=== PATIENT | female | born 1980 | race American Indian/Alaskan Native ===

== ENCOUNTER 2016-12-02 06:16 | Emergency (ER) | payer SELFPAY ==
[2016-12-02 08:41] LABS: Bilirubin,Urine NEG (Negative); Blood,Urine NEG (Negative); Ketones,Urine NEG (Negative); Leukocyte Esterase,Urine NEG (Negative); Mucus,Urine FEW /HPF; Nitrite,Urine NEG (Negative); Urobilinogen,Urine < 2.0 mg/dL (<2.0)
[2016-12-02] MEDS ORDERED: MORPHINE IV ONE (12:03)
[2016-12-02] MEDS ORDERED: ZOFRAN IV ONE (12:03)
[2016-12-02] MEDS ORDERED: NACL 0.9% 1000 ML IV ONE (12:03)
[2016-12-02 12:38] LABS: Mean Corpuscular HGB Conc 30 % (30-34); Platelet Count 431 K/mm3 (140-440); Red Blood Count 4.18 M/mm3 (3.65-5.03)
[2016-12-02 12:41] LABS: Hematocrit 28.4 % (30.3-42.9); Hemoglobin 8.4 gm/dl (10.1-14.3); Mean Corpuscular Hemoglobin 20 pg (28-32); Mean Corpuscular Volume 68 fl (79-97); Red Cell Distribution Width 21.9 % (13.2-15.2)
[2016-12-02 13:27] LABS: Alanine Aminotransferase 12 units/L (7-56); Albumin 4.3 g/dL (3.9-5); Albumin/Globulin Ratio 1.1 %; Alkaline Phosphatase 94 units/L (35-129); Anion Gap 22 mmol/L; Bilirubin,Total 0.6 mg/dL (0.1-1.2); Blood Urea Nitrogen 10 mg/dL (7-17); Calcium 8.9 mg/dL (8.4-10.2); Carbon Dioxide 18 mmol/L (22-30); Glucose 94 mg/dL (65-100); Lipase 26 units/L (13-60); Potassium 3.6 mmol/L (3.6-5.0); Sodium 135 mmol/L (137-145); Total Protein 8.3 g/dL (6.3-8.2)
[2016-12-02 13:30] LABS: Anisocytosis 2+; Blastocytes % (Manual) 0 %; Eosinophils % (Manual) 0 % (0.0-4.3); Poikilocytosis 1+; Polychromasia 1+
[2016-12-02 13:31] LABS: Bilirubin,Direct < 0.2 mg/dL (0-0.2); Diff Status Complete; Hypochromasia 1+
[2016-12-02] MEDS ORDERED: NACL ONE (13:32)
--- NOTE | 2016-12-02 13:40 | Emergency Department Report ---
HPI - General Chief Complaint: Abdominal Pain Time Seen by Provider: 12/02/16 11:56 - HPI HPI: Chief complaint: Abdominal pain HPI: Patient is a 36-year-old female has been having abdominal pain for approximately one month. Patient saw her primary care doctor 3 weeks ago and was referred to the emergency department. Patient states she began having some nausea and vomiting approximately 2 weeks ago. Patient also complains of left flank pain radiating into her left buttocks and down her left leg. Patient has had an appendectomy and states to members of her family have had diverticulitis in the past. Patient works part-time for [employer]. Mode of arrival: private car Source: Patient Began: One month ago Duration: One month Context: Worse over the last week Quality: Sharp Severity: 9 out of 10 Improved with: Laying still Worsened with: Movement Associated signs and symptoms: Nausea and vomiting over the last week no diarrhea or fever ED Past Medical Hx - Past Medical History Previous Medical History?: Yes Hx Hypertension: Yes Hx Headaches / Migraines: Yes Hx Asthma: Yes Additional medical history: OBESITY - Surgical History Past Surgical History?: Yes Hx Appendectomy: Yes - Social History Smoking Status: Never Smoker Substance Use Type: Alcohol - Medications Home Medications: Home Medications Medication Instructions Recorded Confirmed Last Taken Type Hydrochlorothiazide [HCTZ] 25 mg PO QDAY 07/22/16 07/22/16 Unknown History Ibuprofen [Motrin 600 MG tab] 600 mg PO Q8H PRN #20 tablet 12/02/16 Unknown Rx traMADol [Ultram 50 MG tab] 50 mg PO Q6HR PRN #20 tablet 12/02/16 Unknown Rx ED Review of Systems ROS: Stated complaint: BACK/HIP/LT SIDE PAIN Other details as noted in HPI ROS Constitutional: No fever ENT: No uri symptoms Cardiovascular: No chest pain Respiratory: No sob or cough GI: No diarrhea : No dysuria frequency or urgency, Skin: No rash Neuro: No focal weakness or numbness Psych: No depression Yohannes/lymph: No edema Physical Exam - Physical Exam Vital Signs: Vital Signs 12/02/16 12/02/16 07:38 12:24 Temperature 98.5 F Pulse Rate 102 H Respiratory 16 22 Rate Blood Pressure 172/110 O2 Sat by Pulse 100 Oximetry Physical Exam: GENERAL: The patient is well-developed well-nourished . HEENT: Normocephalic. Atraumatic. Extraocular motions are intact. Patient has moist mucous membranes. NECK: Supple. No meningitic signs are noted. There is no adenopathy noted. CHEST/LUNGS: Clear to auscultation. There is no respiratory distress noted. HEART/CARDIOVASCULAR: Regular. There is no tachycardia. There is no gallop rub or murmur. ABDOMEN: Abdomen is soft, he said abdominal tenderness without rebound or guarding. Patient has normal bowel sounds. There is no abdominal distention. SKIN: There is no rash. There is no edema. There is no diaphoresis. NEURO: The patient is awake, alert, and oriented. The patient is cooperative. The patient has no focal neurologic deficits. The patient has normal speech. MUSCULOSKELETAL: There is a left para vertebral tenderness starting in the left flank radiating down to the left buttocks. Straight leg raise is negative. There is no limitation range of motion. There is no evidence of acute injury. ED Course Vital Signs 12/02/16 12/02/16 07:38 12:24 Temperature 98.5 F Pulse Rate 102 H Respiratory 16 22 Rate Blood Pressure 172/110 O2 Sat by Pulse 100 Oximetry - Reevaluation(s) Reevaluation #1: 12/02/16 15:23 Patient was given 4 of morphine and 4 of Zofran with improvement. Patient's blood pressure came down with pain medication. Also given a liter of normal saline and 30 mg of IV Toradol. ED Medical Decision Making - Lab Data Result diagrams: 12/02/16 12:17 12/02/16 12:17 Laboratory Tests 12/02/16 12/02/16 08:05 12:17 Total Protein 8.3 H Lipase 26 Ur Specific [place] 1.023 Urine Protein 30 mg/dl Urine Glucose (UA) Neg Urine Ketones Neg Urine Blood Neg Urine Nitrite Neg Urine Bilirubin Neg Ur Leukocyte Esterase Neg Urine WBC (Auto) 1.0 Urine RBC (Auto) 3.0 U Epithel Cells (Auto) 2.0 Urine HCG, Qual Negative Critical care attestation.: If time is entered above; I have spent that time in minutes in the direct care of this critically ill patient, excluding procedure time. ED Disposition Clinical Impression: Right ovarian cyst Sciatica Qualifiers: Laterality: left Qualified Code(s): M54.32 - Sciatica, left side Disposition: DISCHARGED TO HOME OR SELFCARE Is pt being admited?: No Does the pt Need Aspirin: No Condition: Stable Instructions: Sciatica (ED), Ovarian Cyst (ED) Prescriptions: Ibuprofen [Motrin 600 MG tab] 600 mg PO Q8H PRN #20 tablet PRN Reason: Pain traMADol [Ultram 50 MG tab] 50 mg PO Q6HR PRN #20 tablet PRN Reason: Pain Referrals: ASPEN GUALLPA MD [Primary Care Provider] - 3-5 Days [facility] [Provider Group] - 3-5 Days Time of Disposition: 15:25
--- NOTE | 2016-12-02 14:16 | Cat Scan Report ---
CT scan of abdomen and pelvis with IV contrast: History: Abdominal pain. Findings: Normal lung bases. No pleural or pericardial effusion. Normal liver spleen pancreas and gallbladder. Normal right adrenal gland. 9 mm low density mass left adrenal gland probably an adenoma or a cyst. Normal kidneys and bladder. No free intraperitoneal fluid or air. No evidence of adenopathy. Enlarged uterus. There is a cyst measuring 5.2 cm in diameter and the right adnexa adjacent to the right side of fundus. No evidence of appendicitis or diverticulitis. Minimal air and stool in colon. No bowel distention. Impression: Large cyst right adnexa. Sonographic correlation may be advised. Left adrenal adenoma or a cyst.
[2016-12-02 15:10] VITALS: BP 125/55
[2016-12-02] MEDS ORDERED: TORADOL IV ONE (15:17)
== END 2016-12-02 17:45 | disposition home or self-care (01) ==
LOC: ED 06:16
DX: N83.201 Unspecified ovarian cyst, right side (principal); M54.32 Sciatica, left side; I10 Essential (primary) hypertension; G43.909 Migraine, unspecified, not intractable, without status migrainosus; J45.909 Unspecified asthma, uncomplicated; E66.9 Obesity, unspecified
CPT/HCPCS: 36415; 74177; 80048; 80074; 81001; 81025; 83690; 85007; 85025; 96361; 96374; 96375; 99284; J1885; J2270; J2405; J7030; Q9967

== ENCOUNTER 2018-06-07 05:34 | Emergency (ER) | payer OTHER ==
[2018-06-07] MEDS ORDERED: TYLENOL ONE (06:07)
[2018-06-07 06:41] VITALS: BP 166/82
--- NOTE | 2018-06-07 09:34 | Emergency Department Report ---
HPI - General Chief Complaint: Sore Throat Time Seen by Provider: 06/07/18 09:17 - HPI HPI: 38-year-old female presents to the emergency department with a four-day history of sore throat, left-sided neck pain and a headache. Occasionally she has a subjective fever but has not checked her temperature. She has tried multiple [id number] treatments including tea, Tylenol without much relief. She has a past medical history of asthma, migraine headaches, hypertension. No sick contacts at home. The patient traveled to [facility] 2 months ago. Her PCP is a Dr Mcmullen. ED Past Medical Hx - Past Medical History Previous Medical History?: Yes Hx Hypertension: Yes Hx Headaches / Migraines: Yes Hx Asthma: Yes Additional medical history: OBESITY - Surgical History Past Surgical History?: Yes Hx Appendectomy: Yes - Social History Smoking Status: Never Smoker Substance Use Type: Alcohol - Medications Home Medications: Home Medications Medication Instructions Recorded Confirmed Last Taken Type hydroCHLOROthiazide [HCTZ] 25 mg PO QDAY 07/22/16 12/02/16 12/01/16 History Ibuprofen [Motrin 600 MG tab] 600 mg PO Q8H PRN #20 tablet 12/02/16 Unknown Rx traMADol [Ultram 50 MG tab] 50 mg PO Q6HR PRN #20 tablet 12/02/16 Unknown Rx Azithromycin [Zithromax Z-ROMINA] 250 mg PO DAILY #6 tab 06/07/18 Unknown Rx ED Review of Systems ROS: Stated complaint: SORE THROAT HEAD PAIN Other details as noted in HPI Comment: All other systems reviewed and negative Constitutional: fever (subjective, intermitten). denies: chills Eyes: denies: eye pain, eye discharge, vision change ENT: throat pain. denies: ear pain Respiratory: denies: cough, shortness of breath, wheezing Cardiovascular: denies: chest pain, palpitations Gastrointestinal: denies: abdominal pain, nausea, diarrhea Genitourinary: denies: urgency, dysuria, discharge Musculoskeletal: denies: back pain, joint swelling, arthralgia Skin: denies: rash, lesions Neurological: headache. denies: weakness Physical Exam - Physical Exam Vital Signs: Vital Signs 06/07/18 06:10 Temperature 99.3 F Pulse Rate 80 Respiratory 12 Rate Blood Pressure 166/82 O2 Sat by Pulse 100 Oximetry Physical Exam: GENERAL: The patient is well-developed well-nourished. HENT: Normocephalic. Atraumatic. Patient has moist mucous membranes. No drooling or trismus. There is some tonsillar erythema and posterior pharynx hypervascularity. No exudates. EYES: Extraocular motions are intact. Pupils equal reactive to light bilaterally. NECK: Supple. Trachea is midline. No obvious palpable lymphadenopathy. CHEST/LUNGS: Clear to auscultation. There is no respiratory distress noted. HEART/CARDIOVASCULAR: Regular. There is no tachycardia. There is no murmur. ABDOMEN: Abdomen is soft, nontender. Patient has normal bowel sounds. There is no abdominal distention. SKIN: Skin is warm and dry. NEURO: The patient is awake, alert, and oriented. The patient is cooperative. The patient has no focal neurologic deficits. The patient has normal speech and gait. MUSCULOSKELETAL: There is no tenderness or deformity. There is no evidence of acute injury. ED Course Vital Signs 06/07/18 06:10 Temperature 99.3 F Pulse Rate 80 Respiratory 12 Rate Blood Pressure 166/82 O2 Sat by Pulse 100 Oximetry ED Medical Decision Making - Medical Decision Making Rapid strep test was negative but it is not 100% accurate. She fulfills 2 out of 4 Centor criteria. Patient started on a Z-Romina and encouraged follow-up with primary care physician in the next few days. Vital signs stable throughout her ED course. She understands and agrees to plan. - Differential Diagnosis viral pharyngitis, strep pharyngitis, mononucleosis, postnasal drip Critical Care Time: No Critical care attestation.: If time is entered above; I have spent that time in minutes in the direct care of this critically ill patient, excluding procedure time. ED Disposition Clinical Impression: Hypertension Qualifiers: Hypertension type: essential hypertension Qualified Code(s): I10 - Essential ( primary) hypertension Pharyngitis Qualifiers: Pharyngitis/tonsillitis etiology: unspecified etiology Qualified Code(s): J02.9 - Acute pharyngitis, unspecified Disposition: DC-01 TO HOME OR SELFCARE Is pt being admited?: No Condition: Stable Instructions: Strep Throat (ED), Hypertension (ED) Additional Instructions: Please do not share any food or liquids with anyone else. Take the antibiotics as prescribed. Follow-up with your primary care physician in the next few days. Return to the emergency Department with any worsening of your symptoms or any acute distress. Take your blood pressure medication. Try and stay away from foods that are high in salt and caffeinated products to help with your blood pressure. Keep a blood pressure log. Prescriptions: Azithromycin [Zithromax Z-ROMINA] 250 mg PO DAILY #6 tab Referrals: PRIMARY CARE, [Primary Care Provider] - 2-3 Days Forms: Work/School Release Form(ED) Time of Disposition: 09:35
== END 2018-06-07 09:43 | disposition home or self-care (01) ==
LOC: ED 05:34
DX: J02.9 Acute pharyngitis, unspecified (principal); I10 Essential (primary) hypertension; G43.909 Migraine, unspecified, not intractable, without status migrainosus; J45.909 Unspecified asthma, uncomplicated; Z90.89 Acquired absence of other organs
CPT/HCPCS: 87116; 87430; 99283

== ENCOUNTER 2021-09-08 08:16 | Day surgery (SDC) | payer MEDICAID ==
[2021-09-06 10:40] LABS: Hematocrit 28.7 % (30.3-42.9); Hemoglobin 9.3 gm/dl (10.1-14.3); Mean Corpuscular HGB Conc 32 % (30-34); Mean Corpuscular Volume 77 fl (79-97); Monocytes % (Auto) 7.5 % (0.0-7.3); Platelet Count 409 K/mm3 (140-440)
[2021-09-06 10:44] LABS: Red Cell Distribution Width 25.9 % (13.2-15.2)
--- NOTE | 2021-09-06 17:15 | Anesthesia Consultation ---
Anesthesia Consult and Med Hx Date of service: 09/08/21 - Airway Anesthetic Teeth Evaluation: Caps ROM Head & Neck: Adequate Mental/Hyoid Distance: Adequate Mallampati Class: Class II Intubation Access Assessment: Good - Pre-Operative Health Status ASA Pre-Surgery Classification: ASA2 Proposed Anesthetic Plan: General Nerve Block: TAP - Pulmonary Hx Smoking: Yes (Former) Hx Asthma: Yes (Last treated 2 weeks ago) Hx Respiratory Symptoms: No (+2FS) Hx Sleep Apnea: No - Cardiovascular System Hx Hypertension: Yes - Central Nervous System Hx Psychiatric Problems: No - Gastrointestinal Hx Gastroesophageal Reflux Disease: Yes (Occasional) - Hematic Hx Anemia: Yes Hx Sickle Cell Disease: No - Other Systems Hx Alcohol Use: Yes (Occas) Hx Cancer: No Hx Obesity: Yes
[2021-09-06 18:02] LABS: Anisocytosis 1+; Hypochromasia 1+; Stomatocytes 2+; Total Cells Counted 100
[2021-09-06 18:03] LABS: Platelet Estimate Consistent w Auto
--- NOTE | 2021-09-08 07:27 | Short Stay Summary ---
Short Stay Documentation Date of service: 09/08/21 Narrative H&P: 41-year-old with a history of symptomatic uterine fibroids and dysfunctional uterine bleeding. The patient reports worsening vaginal bleeding and dysmenorrhea during her menses. She is attempted medical management without significant improvement in symptoms. The patient was advised of other treatment options and has elected to undergo definitive surgical management. - History Principal diagnosis: Dysfunctional uterine bleeding and symptomatic uterine fibroids Past Medical History: hypertension, migraines Past Surgical History: appendectomy Social history: single - Allergies and Medications Current Medications: Allergies No Known Allergies Allergy (Verified 09/03/21 16:46) Home Medications Medication Instructions Recorded Confirmed Last Taken Type Albuterol Sulfate [Proventil Hfa] 2 puff IH Q4H PRN 09/03/21 09/03/21 Unknown History Losartan [Cozaar] 50 mg PO QDAY 09/03/21 09/03/21 Unknown History Active Medications Celecoxib (Celecoxib 200 Mg Cap) 400 mg PO PREOP NR Stop: 09/08/21 23:00 Gabapentin (Gabapentin 300 Mg Cap) 300 mg PO PREOP NR Stop: 09/08/21 23:00 Lactated Ringer's (Lactated Ringers) 1,000 mls @ 125 mls/hr IV DIRECT DURAN Midazolam HCl (Midazolam 2 Mg/2 Ml Inj) 2 mg IV PREOP NR Stop: 09/08/21 23:59 - Physical exam General appearance: no acute distress Integumentary: no rash HEENT: Atraumatic Lungs: Clear to auscultation Breasts: deferred Heart: Regular rate Gastrointestinal: normal Female Genitourinary: deferred Rectal Exam: deferred Extremities: no ischemia - Brief post op/procedure progress note Date of procedure: 09/08/21 Pre-op diagnosis: Symptomatic uterine fibroids Post-op diagnosis: same Procedure: Robotic hysterectomy and bilateral salpingectomy Anesthesia: GETA Surgeon: PEACE ANDRADE Estimated blood loss: other (100 mL) Pathology: list (Uterus, cervix, bilateral tubes) Specimen disposition: to lab Condition: stable - Hospital course Hospital course: The patient was admitted the day of surgery and underwent a robotic hysterectomy and bilateral salpingectomy. Please see operative note for details of surgery. Her postoperative course was uneventful. - Disposition Condition at discharge: Good Disposition: 01 HOME / SELF CARE / HOMELESS Short Stay Discharge Plan Activity: other (Pelvic rest for 6 weeks) Diet: regular Additional Instructions: Patient may schedule follow-up with Dr. Andrade in 4 weeks Pelvic rest for 6 weeks Patient may shower but no tub baths for [address] in 2 weeks
[~2021-09-08 08:16] MED LIST: ACETAMINOPHEN 500 MG TAB PO ONE; CELECOXIB 200 MG CAP PO NR; GABAPENTIN 300 MG CAP PO NR; LACTATED RINGERS 1,000 ML IV SCH; MAGNESIUM OXIDE 400 MG TAB PO ONE; MIDAZOLAM 2 MG/2 ML INJ IV NR; ceFAZolin/Water 2 GM/20 ML 2 GM/20 ML SYRINGE IV NR; fentaNYL 100 MCG/2 ML INJ IV ONE
[2021-09-08] MEDS ORDERED: ACETAMINOPHEN 500 MG TAB ONE (08:45)
[2021-09-08] MEDS ORDERED: MAGNESIUM OXIDE 400 MG TAB PO ONE (08:45)
--- NOTE | 2021-09-08 09:03 | Anesthesia Day of Surgery ---
Anesthesia Day of Surgery - Day of Surgery Patient Examined: Yes Patient H&P Reviewed: Yes Patient is NPO: Yes
[2021-09-08] MEDS ORDERED: dexAMETHasone 4 MG/ML VIAL ONE ×2 (10:53)
[2021-09-08] MEDS ORDERED: BUPIVACAINE/PF (0.25%) 2.5 MG/ML 30 ML VIAL INFILTRATI ONE (10:53)
[2021-09-08] MEDS ORDERED: fentaNYL 100 MCG/2 ML INJ ONE ×2 (10:59→12:10)
[2021-09-08] MEDS ORDERED: ROCURONIUM 50 MG/5 ML INJ IV ONE ×2 (12:10→14:09)
[2021-09-08] MEDS ORDERED: LIDOCAINE PF 100 MG/5 ML (CARDIAC SYRINGE) IV ONE (12:10)
[2021-09-08] MEDS ORDERED: propofoL 200 MG/20 ML VIAL IV ONE (12:11)
[2021-09-08] MEDS ORDERED: NEOMY 40 MG/POLYMYXIN B 200,000 UNITS/ML (GU) AMPULE IR ONE ×2 (12:22→13:41)
[2021-09-08] MEDS ORDERED: SODIUM CHLORIDE 0.9% IRRIG SOLN 2000 ML IR ONE (13:41)
[2021-09-08] MEDS ORDERED: SODIUM CHLORIDE 0.9% IRR 1,500 ML BOTTLE IR ONE (13:41)
[2021-09-08] MEDS ORDERED: dexAMETHasone 20 MG/5 ML VIAL ONE (14:10)
[2021-09-08] MEDS ORDERED: PHENYLEPHRINE/NS 1,000 MCG/10 ML SYRINGE (OR USE) IV ONE (14:10)
[2021-09-08] MEDS ORDERED: ONDANSETRON 4 MG/2 ML INJ ONE (14:10)
[2021-09-08] MEDS ORDERED: HYDROmorphone 1 MG/1 ML INJ ONE (14:10)
[2021-09-08] MEDS ORDERED: SUGAMMADEX SODIUM 200 MG/2 ML VIAL IV ONE ×2 (14:32→14:47)
--- NOTE | 2021-09-08 14:38 | Operative Report ---
Operative Report Operative Report: Date of surgery: September 08, 2021 Preoperative diagnoses: Symptomatic uterine fibroids; dysfunctional uterine bleeding Postoperative diagnoses: Same as above Procedure: Robotic hysterectomy; bilateral salpingectomy Surgeon: Scarlett Hidalgo M.D. Social Service Liaison:Tamika Galarza Anesthesia: Gen. endotracheal anesthesia Estimated blood loss: 100 mL Pathology: Uterus, cervix, bilateral tubes Indication: 41-year-old -0-1-3 with a history of symptomatic uterine fibroids and dysfunctional uterine bleeding. The patient elected to undergo definitive surgical management. Procedure: The patient was taken to the operating room and given general endotracheal anesthesia without complication after a time out was performed confirming the surgery and identity of the patient. She was prepped and draped in a normal sterile fashion. A bivalve speculum was placed in the patient's vagina and a single-tooth tenaculum placed on the anterior lip of the cervix. The uterus was sounded with the uterine sound. A stay suture with 0-vicryl was placed at 12 o'clock on the anterior cervix. A [employer] uterine manipulator was placed in the bivalve speculum was then removed. A warm laparotomy sponge was placed in the vagina. Attention was then turned to the patient's abdomen where a 12millimeter supra umbilical skin incision was then made. A Veress needle was placed and peritoneal entry was verified water-filled syringe. Insufflation of the peritoneal cavity was performed with CO2 gas. The 12 mm trocar was then placed under direct visualization. An additional 8 mm robotic trocar was placed on the patient's left and right lateral side just opposite of the supraumbilical trocar. An additional 5 mm right lateral trocar was then placed as the accessory port. The supraumbilical 12 mm trocar site was closed with the Cachorro Gordon device and 0-vicryl suture. The patient was then placed in steep Trendelenburg. The da Ranjan robot was then engaged. A fenestrated forcep was placed in arm 2 and a vessel sealer was placed in arm 1. General survey of the abdomen and pelvis revealed a mildly enlarged uterus with evidence of small leiomyomas. The tubes and ovaries are normal in appearance. The surgeon then transferred to the surgical console. The mesosalpinx was then isolated on the right. The vessel sealer was used to coagulate the mesosalpinx which was then transected. The tube was transected from the ovary. The tubo-ovarian ligament was then coagulated and transected. The round ligament was then coagulated and transected also. The vesicouterine peritoneum was then entered from the patient's right side. The uterine vessels were then coagulated with the vessel sealer. The vessels were then transected . Attention was then turned to the patient's left side where the tubo-ovarian ligament and mesosalpinx were again isolated coagulated and transected. The vesical peritoneum was then entered from the left and joined in the midline. Peritoneum was reflected off of the lower uterine segment. Uterine vessels were then coagulated and then transected. The blood supply to the uterus was adequately contained, a posterior colpotomy was made. The V care ring was visualized. Posterior colpotomy was created with the monopolar scissors. The incision was continued circumferentially until anterior colpotomy was made. The cervix and uterus were amputated from the vaginal cuff. The uterus was then removed along with the tubes bilaterally through the vagina and a warm laparotomy sponge was placed and maintain the pneumoperitoneum. The vaginal cuff was then closed in a running fashion with V lock suture. Irrigation of the pelvis was performed. Surgicel powder was applied to the incision. The [employer] robot was undocked. The trocars were removed and the insuffliation was released. The skin was then reapproximated with 4-0 Monocryl. The tissue was sent to pathology which included the cervix, bilateral tubes and uterus. The patient was then successfully extubated. She was then taken to the recovery room in stable condition. All sponge laps and needle counts were correct x2.
[2021-09-08] MEDS ORDERED: ONDANSETRON 4 MG/2 ML INJ IV PRN (15:25)
[2021-09-08] MEDS ORDERED: HYDROmorphone 1 MG/1 ML INJ IV PRN ×2 (15:25)
[2021-09-08] MEDS ORDERED: oxyCODONE /ACETAMINOPHEN 5-325MG TAB PO ONE (16:14)
[2021-09-08 16:27] VITALS: BP 148/81
--- NOTE | 2021-09-08 19:13 | Post Anesthesia Evaluation ---
- Post Anesthesia Evaluation Patient Participated: Yes Airway Patent: Yes Stable Respiratory Function: Yes Nausea/Vomiting: No Temp > 96.8F: Yes Pain Manageable: Yes Adequeate Hydration: Yes Anesthesia Complications: No Block Receding Appropriately: Yes Patient on Ventilator: No
== END 2021-09-08 16:40 | disposition home or self-care (01) ==
LOC: OR 08:16
PROVIDERS: ATTEND Obstetrics & Gynecology
DX: N93.8 Other specified abnormal uterine and vaginal bleeding (principal); D25.9 Leiomyoma of uterus, unspecified; N84.0 Polyp of corpus uteri; N80.0 Endometriosis of uterus; N72 Inflammatory disease of cervix uteri; N88.8 Other specified noninflammatory disorders of cervix uteri; Z20.822 Contact with and (suspected) exposure to COVID-19; Z79.899 Other long term (current) drug therapy; Z98.890 Other specified postprocedural states
CPT/HCPCS: 36415; 58552; 64488; 84703; 85007; 85025; 86850; 86900; 86901; 88307; J0690; J1100; J1170; J2001; J2250; J2370; J2405; J2704; J3010; J3490; J7120; S2900; U0003; 64450